=== PATIENT | female | born 1960 | race Caucasian/White ===

== ENCOUNTER 2021-08-22 09:08 | Emergency (ER) | payer BC, SELFPAY ==
[2021-08-22 10:32] VITALS: BP 155/85; PULSE 73; RESP 16; TEMP 36.9; O2SAT 98; BMI 36.6
--- NOTE | 2021-08-22 10:32 | HMH.EDUTC ---
[facility] [place] Disposition Clinical Impression: Viral syndrome, Vertigo Disposition: Home, Self-Care Condition on Discharge: Good Instructions: Preventing the Spread of Coronavirus Discharge Instructions, DI for COVID-19 (Suspected or Confirmed ) Additional Instructions: Drink plenty of fluids. Take tylenol or ibuprofen for pain or fever. Take the medications as directed. Follow up with your regular doctor. GO TO THE ER FOR ANY WORSENING SYMPTOMS Quarantine until you know the results of your covid-19 test. Notify your school or workplace of your results and follow their instructions regarding return to work/school. The cough medication (promethazine dm) will make you drowsy, so don't drive or operate heavy machinery after taking it. Prescriptions: Meclizine HCl [Meclizine 25mg Tab] 25 mg PO Q6HP PRN #30 tab PRN Reason: Dizziness Transmission Status: Pending to [facility] Promethazine/Dextromethorphan [Promethazine-Dm Syrup] 5 ml PO Q6HP PRN #240 ml PRN Reason: Cough Transmission Status: Pending to [facility] Azithromycin [Z-Zev 250mg Tab*] 250 mg PO UD DOSE PK #6 tab Transmission Status: Pending to [facility] Referrals: Darinel Torres MD [Primary Care Provider] - Forms: Work/School Release Time of Disposition: 11:27 Medical Decision Making - Medical Records Medical records reviewed: No: I reviewed the patient's medical records. - Gilberto Inquiry Pt receiving controlled substance: No Vital Signs: 08/22/21 10:32 08/22/21 11:01 Temperature 98.5 F 98.5 F Temperature Source Oral Pulse Rate 73 Pulse Rate [Left] 73 Respiratory Rate 16 16 Blood Pressure 155/85 H Blood Pressure [Right Arm] 155/85 H Blood Pressure Mean [Right Arm] 108 02 Sat by Pulse Oximetry 98 - Lab Data Lab results reviewed: Yes: I reviewed the patient's lab results. Lab Results 08/22/21 10:42: Group A Strep Rapid Negative 08/22/21 10:42: Influenza Type A Ag Negative, Influenza Type B Ag Negative Orders (Tests/Meds): ORDERS Category Date Time Status Covid-19 Nasal PCR ([facility]) Routine Lab 08/22/21 10:41 Received Strep Screen Confirmation Stat Micro 08/22/21 10:42 Received [facility] [place] HPI - General Stated complaint: cough,headache,congestion Time Seen by Provider: 08/22/21 10:32 - History of Present Illness Provider Complaint: She states that since last night she has had dizziness, chest congestion, a dry cough, scratchy sore throat and a head ache. She has been fully vaccinated against covid-19. She has not had a flu shot. - Related Data Home Medications Medication Instructions Recorded Confirmed ibuprofen 400 mg tablet 400 mg PO ONCE 08/08/17 levothyroxine 200 mcg tablet PO 08/08/17 metoprolol tartrate 25 mg tablet 25 mg PO QDAY 08/08/17 Previous Rx's Medication Instructions Recorded Azithromycin [Z-Zev 250mg Tab*] 250 mg PO UD DOSE PK #6 tab 08/22/21 Meclizine HCl [Meclizine 25mg Tab] 25 mg PO Q6HP PRN #30 tab 08/22/21 Promethazine/Dextromethorphan 5 ml PO Q6HP PRN #240 ml 08/22/21 [Promethazine-Dm Syrup] Allergies Allergy/AdvReac Type Severity Reaction Status Date / Time Tetanus Vaccines and Toxoid Allergy Verified 08/22/21 10:37 CIPROFLOXACIN Allergy Unknown I-HIVES Uncoded 07/21/17 15:[address] [facility] History - Hepatitis A Screen Attestation statement:: This patient has been screened for Hepatitis A risk factors. I have reviewed the patient's past medical history: Yes Medical History: Reports:: Hypertension Other Surgeries: Yes: Tubal Ligation - Social History Smoking Status: Current every day smoker Tobacco Type: cigarettes # Packs/Day (cigarettes): 1 Alcohol Intake: current Alcohol Intake Frequency:: a few times a week Substance Use Type: denies use Family Hx:: Stroke, Heart Attack ROS Obtained: Yes All systems reviewed & no additional complaints - Constitutional Constitutional: Reports as per HPI - Eyes Eyes: Den
[2021-08-22 10:42] LABS: UTC Influenza A Antigen Negative (Negative)
[2021-08-22 10:43] LABS: UTC Influenza B Antigen Negative (Negative)
[2021-08-22 10:55] LABS: Strep Scrn Group A (Rapid) Negative (Negative)
[2021-08-22 11:01] VITALS: BP 155/85; PULSE 73; RESP 16; TEMP 36.9
== END 2021-08-22 11:33 | disposition home or self-care (01) ==
PROVIDERS: Emergency Provider Nurse Practitioner Family; PCP Family Medicine
DX: B34.9 Viral infection, unspecified (principal); R42 Dizziness and giddiness; I10 Essential (primary) hypertension; F17.210 Nicotine dependence, cigarettes, uncomplicated
CPT/HCPCS: 87430; 87804; 99203; C9803; G0463; U0003; U0005

== ENCOUNTER → 2021-11-26 16:13 | Outpatient (CLI) | payer BC, SELFPAY ==
--- NOTE | 2021-11-26 16:19 | XR_ITS ---
FINAL REPORT CLINICAL HISTORY: PNEUMONIA FINDINGS: TWO-VIEW CHEST The heart size is normal. The mediastinum is normal. The lungs are clear. There is no pneumothorax. IMPRESSION: No acute cardiopulmonary process. Reviewed, Interpreted and Dictated by Blas Powell MD Transcribed by Denise Payan Authenticated by Blas Powell MD on 11/26/2021 04:54:51 PM [facility]
== END ==
PROVIDERS: PCP Nurse Practitioner Family; Visit Provider Nurse Practitioner Family
DX: J18.9 Pneumonia, unspecified organism (principal)
CPT/HCPCS: 71046

== ENCOUNTER → 2021-12-31 11:05 | Outpatient (CLI) | payer BC, SELFPAY ==
--- NOTE | 2021-12-31 | CA_ITS ---
FINAL REPORT TECHNIQUE: Color Doppler, duplex Doppler and compression sonography of the left lower extremity deep venous systems was performed. CLINICAL HISTORY: .Lt LE edema Covid 1 month ago FINDINGS: There is no evidence of deep venous thrombosis from the level of the groin to the calf. The veins are patent and compressible. IMPRESSION: No evidence of deep venous thrombosis left lower extremity. Reviewed, Interpreted and Dictated by Jose Roberto Mcginnis III, MD Transcribed by Denise Payan Authenticated by Jose Roberto Mcginnis III, MD on 12/31/2021 12:35:05 PM [facility]
== END ==
PROVIDERS: PCP Family Medicine; Visit Provider Family Medicine
DX: M79.606 Pain in leg, unspecified (principal)
CPT/HCPCS: 93971

== ENCOUNTER → 2022-01-28 08:52 | Outpatient (CLI) | payer BC, SELFPAY ==
--- NOTE | 2022-01-28 08:57 | XR_ITS ---
FINAL REPORT TECHNIQUE: Bone densitometry calculations of the lumbar spine and left hip were obtained. CLINICAL HISTORY: . osteopenia FINDINGS: DEXA BONE DENSITY AXIAL SKELETON Using L1-4, the bone mineral density of the spine is 1.263 g/cm2, corresponding to T-score of 2.0. Using the left hip, the bone mineral density of the femoral neck is 0.804 g/cm2, corresponding to a T-score of -0.4. NOTE: T-score: Standard deviation compared with peak bone mass of young adult mean. *Following the recommendations of the International Society of Bone densitometry, classification of hip BMD is based on the lower of two T-scores; total hip or femoral neck. IMPRESSION: Normal bone mineral density of the lumbar spine and hip. Reviewed, Interpreted and Dictated by Jose Roberto Mcginnis III, MD Transcribed by Yovana Olivas Authenticated and [facility]
== END ==
PROVIDERS: PCP Family Medicine; Visit Provider Family Medicine
DX: M85.89 Other specified disorders of bone density and structure, multiple sites (principal)
CPT/HCPCS: 77080

== ENCOUNTER → 2022-06-27 09:20 | Outpatient (CLI) | payer BC, SELFPAY ==
[2022-06-27 10:03] LABS: Coronavirus 19, PCR Not Detected (NotDetected); Influenza A, PCR Not Detected (NotDetected); Influenza B, PCR Not Detected (NotDetected)
== END ==
PROVIDERS: PCP Family Medicine; Visit Provider Physician Assistant
DX: Z20.822 Contact with and (suspected) exposure to COVID-19 (principal)
CPT/HCPCS: C9803; U0003; U0005

== ENCOUNTER → 2022-10-27 17:07 | Outpatient (CLI) | payer BC, SELFPAY | PROVIDERS: PCP Student in an Organized Health Care Education/Training Program; Visit Provider Student in an Organized Health Care Education/Training Program | DX: R05.9 Cough, unspecified (principal); B34.9 Viral infection, unspecified; J02.9 Acute pharyngitis, unspecified | CPT/HCPCS: 87070; C9803; U0003; U0005 ==

== ENCOUNTER → 2023-03-23 14:54 | Outpatient (CLI) | payer BC, SELFPAY ==
--- NOTE | 2023-03-23 14:56 | MM_ITS ---
PROCEDURE INFORMATION: Exam: MG Bilateral Screening 3D Mammography Exam date and time: 03/23/2023 3:00 PM Age: 63 years old Clinical indication: Screening. No family history of breast cancer. TECHNIQUE: Imaging protocol: Bilateral Screening tomosynthesis and 2D mammography including computer-aided detection (CAD) when performed. COMPARISON: 1. MG DMSB DIGITAL MAMM-SCREEN BILATERAL 07/05/2012 3:25 PM 2. MG DIGMAMMS MAMMOGRAM SCREEN-NUT PROCESSING SUPERVISOR N/C 03/13/2005 3:49 PM 3. MG DIGMAMMS MAMMOGRAM SCREEN-NUT PROCESSING SUPERVISOR N/C 04/27/2003 3:49 PM FINDINGS: MAMMOGRAPHY: Breast composition: The breasts are almost entirely fatty. Mass: None. Architectural distortion: None. Calcifications: No suspicious calcifications. Asymmetric density: None. Skin thickening: None. Axillary adenopathy: None. IMPRESSION: No mammographic evidence of malignancy. Annual screening is recommended unless otherwise clinically indicated. ASSESSMENT: BI-RADS Category 1: Negative
== END ==
PROVIDERS: PCP Student in an Organized Health Care Education/Training Program; Visit Provider Physician Assistant
DX: Z12.31 Encounter for screening mammogram for malignant neoplasm of breast (principal)
CPT/HCPCS: 77063; 77067

== ENCOUNTER 2023-11-11 08:50 | Day surgery (SDC) | payer OTHER, SELFPAY ==
[2023-11-11 09:09] VITALS: BP 124/68; PULSE 67; RESP 18; TEMP 36.8; O2SAT 96
--- NOTE | 2023-11-11 09:25 | EXP.ANES.CKL ---
[facility] Disclaimer: The information contained in this section may have been updated after the patient was seen, as this information can be updated by other users. Medical History Hypothyroidism Hypertension Social History Smoking Status: Current every day smoker tobacco type: cigarettes packs per day: 1 alcohol intake: current substance use type: denies use current occupational status: employed Travel in the last 8 weeks: None marital status: caffeine: Yes [facility] Anesthesia Checklist Patient Identification Patient Identification: Arm Band, Family and Verbal (Name & ) Structural Data Admitted From: Home Planned Operative Procedure/s: Colonoscopy Consent for Planned Operative Procedure(s) Verified: Yes Verified Documents: Surgical Consent and History and Physical NPO Status Verified Time NPO: 20:30 Chart Verification Results Verified: Chest Xray Additional verifications Patient : No Anesthesia Reactions: No (N/A - pt. denies ever having any anesthesia.) Cardiovascular Assessment Heart Sounds: S1 & S2 Pulse Rhythm: Irregular Peripheral Edema: No Airway Assessment Mallampati Score:: Class II C-Spine Mobility Assessed: Yes (FROM) TMJ Mobility Assessed: Yes Dentition: Poor Dentition (Nothing loose per pt.) Neurological Assessment Level of Consciousness: Awake, Alert, Appropriate and Follows Commands Hx Seizures: No Numbness or tingling in extremities: No Anesthesia Plan Anesthesia Risk discussed: Yes Anesthesia Plan: Verified ASA Class: III Anesthesia Type: MAC
[2023-11-11 10:05] VITALS: O2SAT 96
--- NOTE | 2023-11-11 10:31 | HMH.SCOPE ---
Procedure: Date: 11/11/23 Patient Date of :: 1960 Procedure Performed:: Colonoscopy Indications:: The patient is a 63-year-old who presents for colonoscopy evaluation for having a positive Cologuard test. This is the patient's first colonoscopy. Performing Provider:: Andre Siu MD Referring Provider:: Hilda Sanchez PA-C Sedation:: See RN records Procedure:: After placing the patient in the left lateral decubitus position, the colonoscopy was gently inserted into the rectum and under direct visualization advanced to the cecum which was identified by transillumination in the right lower quadrant, identification of the ileocecal valve, appendiceal orifice, and cecal strap. Color, texture, mucosa, and anatomy of the colon were carefully examined with the scope. The colon was redundant and there was looping of the endoscope within the sigmoid colon. Completion to the cecum required counter abdominal pressure and scope loop reduction of the colonoscope. Findings:: The quality of the bowel preparation was fair in the cecum, ascending colon, descending colon and sigmoid colon (characterized by thicker mucus substance adherent to mucosa and small particulate food matter). Extended time was taken to irrigate and cleanse the mucosa for improved evaluation. The quality the bowel preparation the remaining colon was good. There were scattered diverticula seen in the sigmoid colon. The remaining colon appeared normal. There were internal hemorrhoids seen on retroflexion view of the Recommendations:: Higher fiber diet Repeat colonoscopy in 5 years Complications:: None Estimated blood obtained (mL): 0 Colonoscopy Component Colonoscopy Component Was a colonoscopy performed during today's procedure?: Yes Recommended follow up colonoscopy of at least 10 years?: Yes
[2023-11-11 10:33] VITALS: BP 88/52; PULSE 61; RESP 16; TEMP 36.3; O2SAT 94
[2023-11-11 10:43] VITALS: BP 107/61; PULSE 63; RESP 16; O2SAT 96
[2023-11-11 10:53] VITALS: BP 120/68; PULSE 69; RESP 18; O2SAT 99
== END 2023-11-11 11:48 | disposition home or self-care (01) ==
PROVIDERS: PCP Physician Assistant; Visit Provider Internal Medicine
PROC: (CPT 45378; principal; 2023-11-11 10:00)
DX: R19.5 Other fecal abnormalities (principal); K64.8 Other hemorrhoids; Q43.8 Other specified congenital malformations of intestine
CPT/HCPCS: 45378